=== PATIENT | female | born 2000 | race Caucasian/White ===

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

== ENCOUNTER → 2021-11-21 | Outpatient (CLI) | payer BC, SELFPAY ==
[2021-11-22 22:06] LABS: Chlamydia By Nucleic Acid AMP Negative (Negative)
[2021-11-23 15:41] LABS: Gonococcus By Nucleic Acid AMP Negative (Negative)
[2021-11-24 22:14] LABS: HPV Reflexed? NOT INDICATED
== END | disposition home or self-care (01) ==
LOC: LABSPEC 11:57
PROVIDERS: Visit Provider Nurse Practitioner Women's Health
DX: N76.0 Acute vaginitis (principal); Z12.4 Encounter for screening for malignant neoplasm of cervix; Z11.3 Encounter for screening for infections with a predominantly sexual mode of transmission
CPT/HCPCS: 87070; 87205; 87491; 87591; 88175; G0145